=== PATIENT | male | born 1985 | race Caucasian/White ===

== ENCOUNTER 2023-08-26 11:08 | Emergency (ER) | payer MEDICAID ==
[~2023-08-26] VITALS: Ht 177.8 cm; Wt 120.2 kg
[2023-08-26 11:29] VITALS: BP 143/79; PULSE 66; RESP 20; TEMP 98.3; O2SAT 98
[2023-08-26] MEDS ORDERED: PRED20TA5 PO (12:37)
== END 2023-08-26 12:57 | disposition home or self-care (01) ==
LOC: MED 11:08
DX: G51.0 Bell's palsy (principal)
CPT/HCPCS: 99283